=== PATIENT | male | born 1940 | race Caucasian/White ===

== ENCOUNTER → 2017-04-25 | Outpatient (CLI) | payer MEDICARE, OTHER ==
[~2017-04-25] MED LIST: AMLO5TAB2 PO; IBUP-1484 PO; LISI40TA PO; PRAV10TA2 PO
[2017-04-25 12:09] LABS: EPI LOT# 5695218
[2017-04-25 12:21] LABS: HEMATOCRIT 47.4 % (39.2-51.8); HEMOGLOBIN 16.4 g/dL (13.7-18.0); WHITE BLOOD COUNT 5.3 x10^3/uL (3.4-10)
[2017-04-25 12:29] LABS: BLOOD UREA NITROGEN 17 mg/dL (7-18)
[2017-04-25 12:34] LABS: ASPARTATE AMINO TRANSFERASE 28 U/L (15-37)
[2017-04-25 12:59] LABS: HCT (PFA) 47.4 % (39.2-51.8); PLATELET (PFA) 186 x10^3/uL (130-400)
[2017-04-25 13:32] LABS: EPI CARTRIDGE 91 SECONDS (72-193)
== END | disposition home or self-care (01) ==
LOC: STAR 10:28
PROVIDERS: ATTEND Neurological Surgery
DX: Z01.818 Encounter for other preprocedural examination (principal); M48.061 Spinal stenosis, lumbar region without neurogenic claudication; R79.1 Abnormal coagulation profile
CPT/HCPCS: 36415; 71020; 80053; 85014; 85025; 85049; 85576; 85610; 85730; 93005